=== PATIENT | male | born 2000 | race Caucasian/White ===

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

== ENCOUNTER 2018-02-09 14:35 | Emergency (ER) | payer BC, OTHER, SELFPAY ==
[2018-02-09] MEDS ORDERED: Acetaminophen 500 MG TAB ONE (14:46)
[2018-02-09] MEDS ORDERED: Ibuprofen 200 MG TAB ONE (14:51)
[2018-02-09 16:26] LABS: #Eosinphils 0.3 thou/uL (0.0-0.7); #Lymphocytes 1.8 thou/uL (1.20-3.40); #Monocytes 0.8 thou/uL (0.11-0.59); #Neutrophils 5.6 thou/uL (1.40-6.50); %Basophils 0.6 % (0.0-1.0); %Eosinophils 3.6 % (0.0-10.0); %Monocytes 8.8 % (0.0-4.0); %Neutrophils 66.1 % (31.0-61.0); Hemoglobin 15.4 g/dL (14.0-18.0); Mean Corpuscular HGB CONC 34.7 g/dL (32.0-36.0); Mean Corpuscular Volume 86.5 fL (78.0-98.0); Mean Platelet Volume 8.7 fL (7.4-10.4); Platelet Count 258 thou/uL (130-400); RBC Distribution Width 11.1 % (11.5-14.5); Red Blood Cell (RBC) Count 5.13 mill/uL (4.00-5.20); White Blood Cell (WBC) Count 8.5 thou/uL (4.8-10.8)
[2018-02-09] MEDS ORDERED: Hydrocortisone 10 mg Tablet PO SCH (16:30)
[2018-02-09 16:45] LABS: ALT (SGPT) 51 U/L (8-55); AST (SGOT) 41 U/L (10-45); Albumin 4.2 g/dL (3.5-5.0); Alkaline Phosphatase 61 U/L (Less than 750); Anion Gap 13 mmol/L (10-20); BUN (Urea Nitrogen) 14 mg/dL (8.4-21.0); Bilirubin, Total 0.8 mg/dL (0.2-1.2); Calc. Creatinine Clearance 0 mL/min (70-130); Calcium 9.7 mg/dL (7.8-10.44); Carbon Dioxide 20 mmol/L (22-29); Chloride 103 mmol/L (98-107); Estimated GFR-MDRD 88; Globulin 3.2 g/dL (2.4-3.5); Glucose 84 mg/dL (70-105); Potassium 3.6 mmol/L (3.5-5.1); Protein, Total 7.4 g/dL (6.0-8.3); Sodium 132 mmol/L (136-145)
--- NOTE | 2018-02-09 16:52 | RAD ---
CHEST TWO VIEWS: HISTORY: Bodyaches. Chills. Nausea. Fever. COMPARISON: 06/01/2017 FINDINGS: Normal cardiac silhouette. The pulmonary vessels and hilum are normal. The costophrenic angles are clear. No mass. No consolidation. No pneumothorax or osseous abnormalities. IMPRESSION: No acute cardiopulmonary process. POS: [facility]
== END 2018-02-09 17:32 | disposition home or self-care (01) ==
LOC: ERS 14:35
DX: J06.9 Acute upper respiratory infection, unspecified (principal); F17.290 Nicotine dependence, other tobacco product, uncomplicated; Z79.899 Other long term (current) drug therapy
CPT/HCPCS: 36415; 71046; 80053; 85025; 87804; 96360; 96361

== ENCOUNTER 2018-03-05 13:19 | Emergency (ER) | payer SELFPAY ==
[2018-03-05 13:43] LABS: #Eosinphils 0.5 thou/uL (0.0-0.7); #Lymphocytes 3.4 thou/uL (1.20-3.40); #Monocytes 0.7 thou/uL (0.11-0.59); #Neutrophils 3.9 thou/uL (1.40-6.50); %Basophils 0.4 % (0.0-1.0); %Eosinophils 6.2 % (0.0-10.0); %Lymphocytes 39.4 % (28.0-48.0); %Monocytes 8.2 % (0.0-4.0); %Neutrophils 45.8 % (31.0-61.0); Hemoglobin 14.7 g/dL (14.0-18.0); Mean Corpuscular HGB CONC 33.4 g/dL (32.0-36.0); Mean Corpuscular Hemoglobin 28.6 pg (25.0-35.0); Mean Corpuscular Volume 85.6 fL (78.0-98.0); Mean Platelet Volume 8.5 fL (7.4-10.4); Platelet Count 312 thou/uL (130-400); RBC Distribution Width 11.5 % (11.5-14.5); Red Blood Cell (RBC) Count 5.13 mill/uL (4.00-5.20); White Blood Cell (WBC) Count 8.6 thou/uL (4.8-10.8)
[2018-03-05 13:47] LABS: Bilirubin Negative (Negative); Blood, Urine Negative (Negative); Clarity CLEAR (Clear); Glucose, Urine (Dipstick) Negative (Negative); Leukocyte Negative (Negative); Nitrite Negative (Negative); Protein, Urine (Dipstick) Negative (Neg-Trace); Specific Gravity, Urine 1.024 (1.002-1.036)
[2018-03-05 14:12] LABS: ALT (SGPT) 36 U/L (8-55); AST (SGOT) 31 U/L (10-45); Albumin 4.3 g/dL (3.5-5.0); Alkaline Phosphatase 76 U/L (Less than 750); Anion Gap 11 mmol/L (10-20); BUN (Urea Nitrogen) 14 mg/dL (8.4-21.0); Bilirubin, Total 0.8 mg/dL (0.2-1.2); Calc. Creatinine Clearance 0 mL/min (70-130); Calcium 9.8 mg/dL (7.8-10.44); Carbon Dioxide 22 mmol/L (22-29); Chloride 105 mmol/L (98-107); Estimated GFR-MDRD Greater than 90; Globulin 3.1 g/dL (2.4-3.5); Glucose 97 mg/dL (70-105); Lipase 24 U/L (8-78); Potassium 3.5 mmol/L (3.5-5.1); Protein, Total 7.4 g/dL (6.0-8.3); Sodium 134 mmol/L (136-145)
[2018-03-05] MEDS ORDERED: Ketorolac Tromethamine 30 MG/ML VIAL ONE (14:57)
--- NOTE | 2018-03-05 15:10 | RAD ---
ACUTE ABDOMINAL SERIES WITH UPRIGHT CHEST AND TWO VIEW ABDOMEN: Indication: Pain. FINDINGS: There is no evidence of consolidation, effusion, or discrete pneumothorax. No free air beneath the he midiaphragms. Bowel gas pattern is nonobstructed. Osseous structures are intact. IMPRESSION: No acute process. POS: [facility]
[2018-03-05] MEDS ORDERED: Dicyclomine 20 MG TAB ONE (15:41)
== END 2018-03-05 16:22 | disposition home or self-care (01) ==
LOC: ERS 13:19
DX: R10.9 Unspecified abdominal pain (principal); F17.290 Nicotine dependence, other tobacco product, uncomplicated
CPT/HCPCS: 36415; 74022; 80053; 81003; 83690; 85025; 96361; 96374; J1885

== ENCOUNTER 2018-03-11 12:52 | Observation (INO) | payer SELFPAY ==
[~2018-03-11 12:52] MED LIST: ISOVUE-370 76%-LOCM 1 ML ONE
[2018-03-11] MEDS ORDERED: Ondansetron PF 4 MG/2 ML Vial ONE ×2 (13:17→14:01)
[2018-03-11] MEDS ORDERED: Hydrocortisone Sod Succ/PF 100 mg/2 ml Vial ONE (13:26)
[2018-03-11 13:33] LABS: #Basophils 0.1 thou/uL (0.0-0.2); #Eosinphils 0.3 thou/uL (0.0-0.7); #Monocytes 1.2 thou/uL (0.11-0.59); #Neutrophils 8.6 thou/uL (1.40-6.50); %Basophils 0.6 % (0.0-1.0); %Eosinophils 2.4 % (0.0-10.0); %Lymphocytes 16.3 % (28.0-48.0); %Monocytes 9.5 % (0.0-4.0); %Neutrophils 71.2 % (31.0-61.0); Hemoglobin 14.1 g/dL (14.0-18.0); Mean Corpuscular HGB CONC 33.7 g/dL (32.0-36.0); Mean Corpuscular Hemoglobin 28.3 pg (25.0-35.0); Mean Corpuscular Volume 83.9 fL (78.0-98.0); Mean Platelet Volume 8.7 fL (7.4-10.4); Platelet Count 247 thou/uL (130-400); RBC Distribution Width 11.6 % (11.5-14.5); Red Blood Cell (RBC) Count 4.99 mill/uL (4.00-5.20); White Blood Cell (WBC) Count 12.1 thou/uL (4.8-10.8)
--- NOTE | 2018-03-11 13:52 | RAD ---
PORTABLE CHEST ONE VIEW: Date: 03-11-18 Time: 12:40 p.m. History: Headache, nausea, body aches. FINDINGS: Comparison is made with exam of 02-19-18. The heart size is normal. The lungs are well expanded without focal areas of consolidation, pneumotho races or pleural effusions. IMPRESSION: No radiographic evidence of acute cardiopulmonary process. POS: [facility]
[2018-03-11 14:01] LABS: ALT (SGPT) 43 U/L (8-55); AST (SGOT) 30 U/L (10-45); Albumin 4.5 g/dL (3.5-5.0); Alkaline Phosphatase 72 U/L (Less than 750); Anion Gap 13 mmol/L (10-20); BUN (Urea Nitrogen) 16 mg/dL (8.4-21.0); Bilirubin, Total 0.7 mg/dL (0.2-1.2); Calc. Creatinine Clearance 0 mL/min (70-130); Calcium 9.8 mg/dL (7.8-10.44); Carbon Dioxide 21 mmol/L (22-29); Chloride 100 mmol/L (98-107); Estimated GFR-MDRD Greater than 90; Globulin 3.1 g/dL (2.4-3.5); Glucose 88 mg/dL (70-105); Potassium 3.3 mmol/L (3.5-5.1); Protein, Total 7.6 g/dL (6.0-8.3); Sodium 131 mmol/L (136-145)
[2018-03-11] MEDS ORDERED: Acetaminophen 500 MG TAB ONE (14:01)
[2018-03-11 14:38] LABS: Bilirubin Small (Negative); Blood, Urine Negative (Negative); Clarity CLEAR (Clear); Glucose, Urine (Dipstick) Negative (Negative); Leukocyte Negative (Negative); Nitrite Negative (Negative); Protein, Urine (Dipstick) Trace mg/dL (Neg-Trace); pH, Urine 6.5 (5.0-9.0)
[2018-03-11 14:39] LABS: Specific Gravity, Urine 1.043 (1.002-1.036)
--- NOTE | 2018-03-11 14:51 | CT ---
CT ABDOMEN AND PELVIS WITH IV CONTRAST: HISTORY: Fever, nausea, vomiting, abdominal pain. FINDINGS: Comparison is made with the exam of 07/04/2007. The lung bases are clear. The liver, pancreas, and adrenal glands are normal. The spleen measures 1 4 cm in length. No calcified gallstones are noted. No free air, free fluid, or retroperitoneal lymp hadenopathy is seen. Enlarged lymph nodes in the ileocecal chain are again seen and essentially jenny lar to 2008. There are small low-density lesions in the kidneys consistent with likely small cysts. Mild hydronephrosis in the left kidney is noted again, similar to the previous study of 2007. No ab normally loculated fluid collections are seen in the ad or pelvis to suggest abscess formation. No a cute osseous abnormalities are seen. The patient is post appendectomy. IMPRESSION: 1. Mild splenomegaly. 2. Stable mild left hydronephrosis. 3. Probable tiny adrenal cysts. 4. Stable mesenteric/ileocecal lymphadenopathy. POS: [facility]
[2018-03-11] MEDS ORDERED: Piperacillin/Tazobactam 4.5 GM VIAL ONE (16:51)
[2018-03-11 17:10] LABS: Amphetamine Not Detected (NotDetected); Barbiturates Screen Not Detected (NotDetected); Benzodiazepine Screen Not Detected (NotDetected); Cocaine Metabolite Screen Not Detected (NotDetected); Medtox Control Line Valid? VALID (VALID); Medtox Reader # READER 1; Methadone Not Detected (NotDetected); Methamphetamine Not Detected (NotDetected); Opiate Screen Not Detected (NotDetected); Oxycodone Screen Not Detected (NotDetected); Phencyclidine (PCP) Not Detected (NotDetected); THC/Cannabinoid Screen Not Detected (NotDetected); Tricyclic Screen Not Detected (NotDetected)
[2018-03-11] MEDS ORDERED: Senokot S 8.6-50 MG TAB PO PRN (18:53)
[2018-03-11] MEDS ORDERED: Guaifenesin DM 100-10/5 ML UDCUP PO PRN (18:53)
[2018-03-11] MEDS ORDERED: Promethazine HCl 25 MG/ML VIAL IM/IV PRN (18:56)
[2018-03-11 19:13] VITALS: BMI 25.3
[2018-03-11] MEDS ORDERED: Ondansetron ODT 4 MG TAB SL PRN (20:00)
[2018-03-11] MEDS ORDERED: Ondansetron PF 4 MG/2 ML Vial IVP PRN (20:00)
[2018-03-11] MEDS: Ondansetron PF 4 MG/2 ML Vial IVP PRN (20:37)
[2018-03-11] MEDS: Acetaminophen 325 MG TAB PO PRN (20:40)
[2018-03-11] MEDS: Famotidine/PF 20 mg/2ml Vial SLOW IVP SCH (20:43)
[2018-03-11] MEDS: Hydrocortisone Sod Succ/PF 100 mg/2 ml Vial IVP SCH (20:47)
[2018-03-11] MEDS: Sodium Chloride 0.9% 1,000 ML IV SCH (22:14)
[2018-03-11] MEDS ORDERED: traMADol HCl 50 MG TAB PO SCH (23:00)
--- NOTE | 2018-03-11 23:22 | HP ---
REASON FOR ADMISSION: Intractable nausea, vomiting. History of congenital adrenal hyperplasia to rule out sepsis. HISTORY OF PRESENT ILLNESS: The patient gives history of having severe nausea and vomiting. He has not been able to keep anything down from the last night. He states he vomited nearly 30 times and most of it was just retching. He has body aches all over and had a fever of 102 at home. Has a headache which is frontal. No cough or expectoration. No complaints of urinary urgency, frequency or burning urination. No complaints of diarrhea. No chest pain, no palpitation. The patient states he is compliant with his hydrocortisone medication. PAST MEDICAL AND SURGICAL HISTORY: History of congenital adrenal hyperplasia, ureteral surgery, appendectomy. CURRENT MEDICATIONS: Hydrocortisone 5 mg 3 times daily. ALLERGIES: No known drug allergies. PERSONAL HISTORY: Vapes E-cigarettes, does not abuse alcohol or drugs. 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 FAMILY HISTORY: Both parents are healthy as far as he knows. CODE STATUS: FULL. Power of trade mark attorney is his parents. REVIEW OF SYSTEMS: The following complete review of systems was negative, unless otherwise mentioned in the HPI or below: Constitutional: Weight loss or gain, ability to conduct usual activities. Skin: Rash, itching. Eyes: Double vision, pain. ENT/Mouth: Nose bleeding, neck stiffness, pain, tenderness. Cardiovascular: Palpitations, dyspnea on exertion, orthopnea. Respiratory: Shortness of breath, wheezing, cough, hemoptysis, fever or night sweats. Gastrointestinal: Poor appetite, abdominal pain, heartburn, nausea, vomiting, constipation, or diarrhea. Genitourinary: Urgency, frequency, dysuria, nocturia. Musculoskeletal: Pain, swelling. Neurologic/Psychiatric: Anxiety, depression. Allergy/Immunologic: Skin rash, bleeding tendency. PHYSICAL EXAMINATION: GENERAL: The patient is a 17-year-old male who is currently not in any acute distress. VITAL SIGNS: Blood pressure 100/64, pulse 140 per minute, respiratory rate 18 per minute, temperature 99.8 degrees Fahrenheit, saturating 98% on room air. NECK: Supple, no elevated JVD. HEENT: Extraocular muscles intact. Pupils reacting to light. Oral cavity, mucous membranes are dry. No exudates or congestion. CARDIOVASCULAR: S1, S2 heard. Regular rhythm. RESPIRATORY: Air entry 2+ bilateral. No rales or rhonchi. ABDOMEN: Soft, bowel sounds heard. No tenderness, rigidity or guarding. EXTREMITIES: No peripheral edema or calf tenderness. VASCULAR SYSTEM: Peripheral pulses 1+ bilateral, no ischemic ulcerations or gangrene. CENTRAL NERVOUS SYSTEM: No gross focal motor deficits noted. The patient is alert, awake, oriented well. PSYCHIATRIC: The patient's mood is euthymic. No hallucinations or delusions. LABORATORY AND X-RAY FINDINGS: White count of 12, H&H 14 and 41, platelet count 247 with 71% neutrophils. Sodium 131, potassium 3.3, bicarbonate 21, BUN 16, creatinine 0.9. Serum glucose 88. Liver enzymes within normal limits. Albumin is 4.5. UA shows small bilirubin, otherwise is negative for any infection. Urine drug screen is negative. Influenza A and B antigens are negative. Chest x-ray done shows no acute cardiopulmonary abnormalities. CT of the abdomen and pelvis with IV contrast done showed mild splenomegaly, stable mild left hydronephrosis, probable tiny adrenal cyst, stable mesenteric/ ileocecal lymphadenopathy. This was compared to prior CAT scan done on 2007. CLINICAL IMPRESSION AND PLAN: The patient will be admitted to medical floor under observation for now. The patient has a history of congenital adrenal hyperplasia and will replace his steroids via IV for now. He will also be pancultured, blood, urine, and sputum if he can provide one. Empiric Levaquin for now. He has got moderate to severe dehydration and will be placed on normal saline at 100 mls per hour. We will also obtain a cortisol level stat. The patient will be on Pepcid 20 mg IV q.12 hourly, Zofran, Phenergan p.r.n. for nausea, vomiting. If patient's cultures were to become positive or patient shows specific signs of infection, he will be switched over to inpatient status. [facility]
[2018-03-12 03:41] LABS: #Lymphocytes 1.6 thou/uL (1.20-3.40); #Monocytes 0.6 thou/uL (0.11-0.59); #Neutrophils 4.4 thou/uL (1.40-6.50); %Basophils 0.6 % (0.0-1.0); %Eosinophils 0.4 % (0.0-10.0); %Lymphocytes 24.1 % (28.0-48.0); %Monocytes 9.2 % (0.0-4.0); %Neutrophils 65.6 % (31.0-61.0); Hemoglobin 12.3 g/dL (14.0-18.0); Mean Corpuscular HGB CONC 32.5 g/dL (32.0-36.0); Mean Corpuscular Hemoglobin 28.3 pg (25.0-35.0); Mean Corpuscular Volume 87.1 fL (78.0-98.0); Platelet Count 220 thou/uL (130-400); RBC Distribution Width 11.6 % (11.5-14.5); Red Blood Cell (RBC) Count 4.35 mill/uL (4.00-5.20); White Blood Cell (WBC) Count 6.8 thou/uL (4.8-10.8)
[2018-03-12] MEDS: Acetaminophen 325 MG TAB PO PRN ×2 (03:41→20:13)
[2018-03-12 04:01] LABS: ALT (SGPT) 38 U/L (8-55); AST (SGOT) 27 U/L (10-45); Albumin 3.7 g/dL (3.5-5.0); Alkaline Phosphatase 59 U/L (Less than 750); Anion Gap 15 mmol/L (10-20); BUN (Urea Nitrogen) 12 mg/dL (8.4-21.0); Bilirubin, Total 0.4 mg/dL (0.2-1.2); Calc. Creatinine Clearance 127 mL/min (70-130); Calcium 8.9 mg/dL (7.8-10.44); Carbon Dioxide 17 mmol/L (22-29); Chloride 106 mmol/L (98-107); Estimated GFR-MDRD Greater than 90; Globulin 2.7 g/dL (2.4-3.5); Glucose 101 mg/dL (70-105); Potassium 4.6 mmol/L (3.5-5.1); Protein, Total 6.4 g/dL (6.0-8.3); Sodium 133 mmol/L (136-145)
[2018-03-12] MEDS: Ondansetron PF 4 MG/2 ML Vial IVP PRN ×2 (04:55→13:27)
[2018-03-12] MEDS ORDERED: Fioricet 325/50/40 mg Tablet PO SCH (05:30)
[2018-03-12] MEDS: Hydrocortisone Sod Succ/PF 100 mg/2 ml Vial IVP SCH ×3 (05:56→21:42)
[2018-03-12] MEDS: Sodium Chloride 0.9% 1,000 ML IV SCH ×3 (08:24→18:48)
[2018-03-12] MEDS: Famotidine/PF 20 mg/2ml Vial SLOW IVP SCH ×2 (08:24→20:07)
[2018-03-12] MEDS: Enoxaparin Sodium 40 MG/0.4 ML SYRINGE SC SCH (08:24)
--- NOTE | 2018-03-12 13:45 | PDOC.PN ---
- Subjective Encounter Start Date: 03/12/18 Encounter Start Time: 09:00 Subjective: Follow up for OBS for N/V Examined patient, -: Drousy after phenergan and zofran, reports vomiting has slowed down -: Reports feeling "slightly better". Diffuse abdominal pain - Objective Resuscitation Status: Resuscitation Status FULL:Full Resuscitation Vital Signs & Weight: Vital Signs (12 hours) Temp Pulse Resp BP Pulse Ox 03/12/18 11:15 97.7 F 91 16 100/52 L 99 03/12/18 07:21 98 F 78 15 94/46 L 99 03/12/18 03:29 97.4 F L 90 17 100/56 L 96 Weight Weight 74.117 kg I&O: 03/11/18 03/12/18 03/13/18 06:59 06:59 06:59 Intake Total 1275 Output Total 1225 Balance 50 Result Diagrams: 03/12/18 03:24 03/12/18 03:24 Phys Exam - Physical Examination Constitutional: NAD HEENT: PERRLA, moist MMs Neck: no nodes, full ROM Respiratory: clear to auscultation bilateral Cardiovascular: RRR, no significant murmur Gastrointestinal: soft, positive bowel sounds diffuse tenderness to palpation Musculoskeletal: no edema, pulses present Neurological: non-focal, normal sensation, moves all 4 limbs Lymphatic: no nodes Psychiatric: normal affect, A&O x 3 Skin: cap refill <2 seconds Dx/Plan (1) Nausea & vomiting Code(s): R11.2 - NAUSEA WITH VOMITING, UNSPECIFIED Status: Acute Qualifiers: Vomiting Intractability: intractable (2) Adrenogenital disorder Code(s): E25.9 - ADRENOGENITAL DISORDER, UNSPECIFIED Status: Chronic (3) Dehydration Code(s): E86.0 - DEHYDRATION Status: Acute - Plan cont current plan of care, continue antibiotics, DVT proph w/lovenox -: Will continue fluids, anti-emetics, Levaquin -: preliminary blood cx are negative -: WBC improved today. -: Will monitor, repeat labs in am if still vomiting today * .
[2018-03-13] MEDS: Sodium Chloride 0.9% 1,000 ML IV SCH (04:31)
[2018-03-13] MEDS: Hydrocortisone Sod Succ/PF 100 mg/2 ml Vial IVP SCH (06:10)
[2018-03-13 07:43] VITALS: BP 98/51; TEMP 97.8
[2018-03-13 08:20] LABS: #Lymphocytes 1.5 thou/uL (1.20-3.40); #Monocytes 0.4 thou/uL (0.11-0.59); #Neutrophils 1.5 thou/uL (1.40-6.50); %Basophils 0.3 % (0.0-1.0); %Eosinophils 0.8 % (0.0-10.0); %Lymphocytes 42.7 % (28.0-48.0); %Monocytes 12.2 % (0.0-4.0); Hemoglobin 11.5 g/dL (14.0-18.0); Mean Corpuscular HGB CONC 32.5 g/dL (32.0-36.0); Mean Corpuscular Hemoglobin 28.4 pg (25.0-35.0); Mean Corpuscular Volume 87.5 fL (78.0-98.0); Mean Platelet Volume 8.8 fL (7.4-10.4); Platelet Count 217 thou/uL (130-400); RBC Distribution Width 11.7 % (11.5-14.5); Red Blood Cell (RBC) Count 4.06 mill/uL (4.00-5.20); White Blood Cell (WBC) Count 3.5 thou/uL (4.8-10.8)
[2018-03-13] MEDS: Enoxaparin Sodium 40 MG/0.4 ML SYRINGE SC SCH (08:22)
[2018-03-13] MEDS: Famotidine/PF 20 mg/2ml Vial SLOW IVP SCH (08:22)
[2018-03-13 08:42] LABS: ALT (SGPT) 32 U/L (8-55); AST (SGOT) 23 U/L (10-45); Albumin 3.4 g/dL (3.5-5.0); Alkaline Phosphatase 55 U/L (Less than 750); Anion Gap 10 mmol/L (10-20); BUN (Urea Nitrogen) 9 mg/dL (8.4-21.0); Bilirubin, Total 0.2 mg/dL (0.2-1.2); Calc. Creatinine Clearance 178 mL/min (70-130); Calcium 8.6 mg/dL (7.8-10.44); Carbon Dioxide 19 mmol/L (22-29); Chloride 114 mmol/L (98-107); Estimated GFR-MDRD Greater than 90; Globulin 2.5 g/dL (2.4-3.5); Glucose 99 mg/dL (70-105); Lipase 31 U/L (8-78); Potassium 3.6 mmol/L (3.5-5.1); Protein, Total 5.9 g/dL (6.0-8.3); Sodium 139 mmol/L (136-145)
--- NOTE | 2018-03-14 10:55 | DIS ---
DATE OF ADMISSION: 03/11/2018 DATE OF DISCHARGE: 03/13/2018 PRIMARY CARE PHYSICIAN: None. He does see Dr. Vasques, service agent at [facility]. CONSULTANTS: None. PROCEDURES: The patient had a CT of the abdomen and pelvis, which showed mild splenomegaly, stable left hydronephrosis, tiny adrenal cysts, stable mesenteric lymphadenopathy. Chest x-ray was also performed with no radiographic evidence of acute process. DISCHARGE DIAGNOSES: 1. Intractable nausea and vomiting, resolved. 2. Congenital adrenal hyperplasia. 3. Dehydration, resolved. HOSPITAL COURSE: Mr Mayes was admitted on 03/11/18 via the ED for intractable nausea/vomiting, epigastric pain, fever, chills and was febrile. Patient was started on Levaquin, IV steroids, fluids and anti-emetics. Patient began to feel better the night prior to discharge, was able to eat a regular breakfast prior to being discharged home. Leukocystosis resolved, renal function and dehydration status improved, vital signs were stable and patient was discharged home. REVIEW OF SYSTEMS: The patient was examined on day of discharge. The patient denied any abdominal pain. Denied any nausea or vomiting in the last 12 hours. Denied any diarrhea. All other systems were reviewed and are negative. PHYSICAL EXAMINATION: VITAL SIGNS: Temperature 97.8, pulse is 51, respirations are 16, pulse ox is 99 % on room air, blood pressure is 98/51. GENERAL: The patient is a 17-year-old male, who is in no acute distress. He is alert and oriented, conversive. States he feels much better. HEENT: Head is normocephalic, atraumatic. Extraocular muscles are intact. Pupils are equally round and reactive to light. ENT, mucous membranes are moist. NECK: Normal range of motion. Trachea is midline. No JVD. RESPIRATORY/CHEST: Breath sounds are clear. CARDIOVASCULAR: S1, S2. Normal heart sounds. ABDOMEN: Male, nontender on palpation. Bowel sounds are heard in all 4 quadrants. No peritoneal signs. BACK: Normal inspection, normal range of motion, no tenderness. EXTREMITIES: Strength is equal x4. Sensation to all four extremities. Pulses are equal bilaterally upper and lower. No pedal edema is noted. NEUROLOGIC: The patient is alert to person, place and time. Speech is normal. No focal motor or sensory deficits. SKIN: Warm, dry and normal in color. No rashes are seen. MEDICATIONS: Patient was restarted on his home medications and we added Levaquin 750mg po daily x3 days, and Zofran 4mg ODT q6h prn nausea. DISPOSITION: condition is stable. Patient will be discharged to home. REFERRAL: Patient has been instructed to establish care with a PCP and follow up within the next week. Follow up with Dr. Vasques within the next 2-3 weeks. DICTATION ENDED MTDD
--- NOTE | 2018-03-14 17:42 | DIS ---
DATE OF ADMISSION: 03/11/2018 DATE OF DISCHARGE: 03/13/2018. PRIMARY CARE PHYSICIAN: None. Does see Dr. Vasques at [facility]. CONSULTATIONS: None. PROCEDURES: 1. The patient did have a chest x-ray which showed no radiographic evidence of any acute pulmonary process. 2. The patient had an abdominal pelvis CT with impression, A. Mild splenomegalia. B. Stable mild left hydronephrosis. C. Probable tiny adrenal cysts. D. Stable mesenteric ileocecal lymphadenopathy. DISCHARGE DIAGNOSES: 1. Nausea and vomiting, resolved. 2. Congenital adrenal hyperplasia. 3. Dehydration, resolved. REVIEW OF SYSTEMS: The patient was examined on day of discharge and was feeling much better. Denied any epigastric abdominal pain, any nausea, vomiting in the last 12 hours. Denied any constipation or diarrhea. All other systems were reviewed and are negative. PHYSICAL EXAMINATION: VITAL SIGNS: Temperature 97.8, pulse 51, respirations 16, pulse ox is 99% on room air, blood pressure 98/51. GENERAL: The patient is alert and oriented x3, in no apparent distress, looks nontoxic. HEENT: Head is normocephalic, atraumatic. Eyes; pupils are round and equal, reactive to light. Extraocular muscles are intact. NECK: Normal range of motion. Trachea is midline. No JVD is noted. RESPIRATORY: Chest, no respiratory distress. Breath sounds are clear. No wheezing or rales. LUNGS: Clear to auscultation. CARDIOVASCULAR: S1, S2. No murmur auscultated. ABDOMEN: Soft, nontender. Bowel sounds are present. EXTREMITIES: Full strength and range of motion x4. Pulses are equal and bilateral. SKIN: Warm, dry, normal in color. DISCHARGE MEDICATIONS: The patient will be continued on Protonix 20 mg p.o. at bedtime, Florinef 0.1 mg p.o. q.a.m., hydrocortisone 5 mg p.o. t.i.d. Prescriptions added for this visit Levaquin 750 mg p.o. daily x3 and Zofran 4 mg p.o. q.6 hours as needed for nausea. ALLERGIES: No known drug allergies. HOSPITAL COURSE: The patient was admitted on 03/14/2018. He gave a history of severe nausea and vomiting and had been keep anything down for 24 hours prior to his ER visit. Reports that he had vomited nearly 30 times and most of it was dry heaving. He reports body aches all over and reports had 102 fever at home as he also complained of a frontal headache. No cough, runny nose and change in urination. Denied any diarrhea, denied any chest pain or shortness of breath. Stated that he was compliant with his hydrocortisone steroid medication. He was admitted to the observation unit. He was given fluids, Levaquin, Zofran, and Phenergan. Patient reported on day of discharge that he felt better, had eaten a full breakfast and was anxious to return home. Vital signs have remained stable. LABORATORY DATA: White blood cell count had gone from 12.1 on day of admission to 3.5 on day of discharge. Sodium 131 increased to 139, potassium 3.3 on day of admission, went to 3.6. Other labs were unremarkable. Patient was discharged home to finish Levaquin course and was given Zofran for any refractory nausea, vomiting. CONDITION AT DISCHARGE: Stable. DISCHARGE INSTRUCTIONS: Patient was discharged home. Patient instructed to establish with a PCP and see within the next week. Follow up with Dr. Vasques at [facility] as scheduled. [facility]
== END 2018-03-13 11:14 | disposition home or self-care (01) ==
LOC: ERS 12:52 → 2SW 17:21
PROVIDERS: ADMIT Internal Medicine; ATTEND Internal Medicine
DX: R11.2 Nausea with vomiting, unspecified (principal); E25.0 Congenital adrenogenital disorders associated with enzyme deficiency; F17.290 Nicotine dependence, other tobacco product, uncomplicated; N13.30 Unspecified hydronephrosis; Z79.52 Long term (current) use of systemic steroids; Z79.899 Other long term (current) drug therapy
CPT/HCPCS: 36415; 71045; 74177; 80053; 80306; 81003; 82533; 83605; 83690; 85025; 87040; 87086; 87804; 96361; 96365; 96366; 96367; 96372; 96375; 96376; G0378; J1650; J1720; J1956; J2405; J2543; J2550; S0028

== ENCOUNTER 2018-08-11 13:25 | Observation (INO) | payer SELFPAY ==
[2018-08-11 14:33] LABS: Bilirubin Negative (Negative); Blood, Urine Negative (Negative); Clarity CLEAR (Clear); Glucose, Urine (Dipstick) Negative (Negative); Leukocyte Negative (Negative); Nitrite Negative (Negative); Protein, Urine (Dipstick) Negative (Neg-Trace); Specific Gravity, Urine 1.027 (1.002-1.036); pH, Urine 6.5 (5.0-9.0)
[2018-08-11] MEDS ORDERED: Ondansetron PF 4 MG/2 ML Vial ONE ×3 (14:38→20:02)
--- NOTE | 2018-08-11 14:42 | RAD ---
CHEST 1 VIEW AND ABDOMEN 2 VIEWS: Date: 08/11/18 HISTORY: Vomiting and diarrhea. Unable to keep fluids down. FINDINGS/IMPRESSION: Comparison made with exam of 03/05/18. The heart size is normal. The lungs are clear. No free air or differential fluid levels are seen. The bowel gas pattern is unremarkable. No suspicious calcifications are identified. POS: [facility]
[2018-08-11 14:47] LABS: #Basophils 0.1 thou/uL (0.0-0.2); #Eosinphils 0.4 thou/uL (0.0-0.7); #Lymphocytes 1.9 thou/uL (1.20-3.40); #Monocytes 0.8 thou/uL (0.11-0.59); #Neutrophils 9.2 thou/uL (1.40-6.50); %Basophils 0.8 % (0.0-1.0); %Eosinophils 3.3 % (0.0-10.0); %Lymphocytes 15.1 % (28.0-48.0); %Monocytes 6.7 % (0.0-4.0); %Neutrophils 74.1 % (31.0-61.0); Hemoglobin 15.6 g/dL (14.0-18.0); Mean Corpuscular HGB CONC 33.7 g/dL (32.0-36.0); Mean Corpuscular Hemoglobin 29.7 pg (25.0-35.0); Mean Corpuscular Volume 88.2 fL (78.0-98.0); Mean Platelet Volume 8.7 fL (7.4-10.4); Platelet Count 272 thou/uL (130-400); RBC Distribution Width 11.2 % (11.5-14.5); Red Blood Cell (RBC) Count 5.26 mill/uL (4.00-5.20); White Blood Cell (WBC) Count 12.5 thou/uL (4.8-10.8)
[2018-08-11 15:03] LABS: ALT (SGPT) 28 U/L (8-55); AST (SGOT) 25 U/L (5-34); Albumin 4.8 g/dL (3.5-5.0); Alkaline Phosphatase 90 U/L (Less than 750); Anion Gap 17 mmol/L (10-20); BUN (Urea Nitrogen) 14 mg/dL (8.9-20.6); Bilirubin, Total 0.9 mg/dL (0.2-1.2); CK (CPK) 129 U/L (30-200); Calc. Creatinine Clearance 0 mL/min (70-130); Calcium 10.2 mg/dL (7.8-10.44); Carbon Dioxide 19 mmol/L (22-29); Chloride 104 mmol/L (98-107); Estimated GFR-MDRD 82; Globulin 2.8 g/dL (2.4-3.5); Glucose 87 mg/dL (70-105); Lipase 14 U/L (8-78); Potassium 3.5 mmol/L (3.5-5.1); Protein, Total 7.6 g/dL (6.0-8.3); Sodium 136 mmol/L (136-145)
[2018-08-11] MEDS ORDERED: Promethazine HCl 25 MG/ML VIAL ONE (18:10)
[2018-08-11] MEDS ORDERED: Acetaminophen 500 MG TAB ONE (20:09)
[2018-08-11] MEDS ORDERED: Ondansetron ODT 4 MG TAB SL PRN (21:08)
[2018-08-11] MEDS ORDERED: Ondansetron PF 4 MG/2 ML Vial IVP PRN (21:08)
[2018-08-11 21:13] VITALS: BMI 31.0
[2018-08-11] MEDS: Sodium Chloride 0.9% 1,000 ML IV SCH (21:31)
[2018-08-11 21:58] LABS: Lactic Acid 0.8 mmol/L (0.5-2.2)
[2018-08-11] MEDS ORDERED: Hydrocortisone 10 mg Tablet PO SCH (22:45)
[2018-08-11] MEDS ORDERED: Fludrocortisone Acetate 0.1 MG TAB PO SCH (22:45)
[2018-08-12] MEDS: Acetaminophen 325 MG TAB PO PRN ×2 (03:28→22:27)
[2018-08-12] MEDS: Sodium Chloride 0.9% 1,000 ML IV SCH (03:53)
[2018-08-12] MEDS ORDERED: Ondansetron ODT 4 MG TAB PO PRN (06:52)
[2018-08-12] MEDS ORDERED: Ondansetron PF 4 MG/2 ML Vial IVP PRN (06:52)
[2018-08-12] MEDS ORDERED: Sodium Chloride 0.9% 1,000 ML IV SCH (07:00)
[2018-08-12] MEDS: Hydrocortisone 10 mg Tablet PO SCH ×3 (08:40→19:34)
[2018-08-12] MEDS ORDERED: Hydrocortisone Sod Succ/PF 100 mg/2 ml Vial IVP SCH (08:45)
[2018-08-12 09:09] LABS: Hemoglobin 13.5 g/dL (14.0-18.0); Mean Corpuscular HGB CONC 33.6 g/dL (32.0-36.0); Mean Corpuscular Hemoglobin 29.7 pg (25.0-35.0); Mean Corpuscular Volume 88.3 fL (78.0-98.0); Mean Platelet Volume 8.6 fL (7.4-10.4); Platelet Count 236 thou/uL (130-400); RBC Distribution Width 11.2 % (11.5-14.5); Red Blood Cell (RBC) Count 4.54 mill/uL (4.00-5.20); White Blood Cell (WBC) Count 5.3 thou/uL (4.8-10.8)
[2018-08-12 09:29] LABS: Lactic Acid 0.7 mmol/L (0.5-2.2)
[2018-08-12 09:31] LABS: Band 1 % (5-11); Eosinophils 10 % (0-10); Lymphocytes 47 % (28-48); MDiff Complete? YES; Monocytes 7 % (0-4); Neutrophil 36 % (31-61); RBC Morphology Normal
[2018-08-12 09:35] LABS: Anion Gap 12 mmol/L (10-20); BUN (Urea Nitrogen) 11 mg/dL (8.9-20.6); Calc. Creatinine Clearance 162 mL/min (70-130); Calcium 8.8 mg/dL (7.8-10.44); Carbon Dioxide 20 mmol/L (22-29); Chloride 108 mmol/L (98-107); Estimated GFR-MDRD Greater than 90; Glucose 78 mg/dL (70-105); Magnesium 1.8 mg/dL (1.7-2.2); Potassium 3.7 mmol/L (3.5-5.1); Sodium 136 mmol/L (136-145)
--- NOTE | 2018-08-12 12:07 | ULT ---
Gallbladder ultrasound: Multiple grayscale images of right upper quadrant obtained according to protocol. INDICATION: Pain, nausea, vomiting FINDINGS: Liver: Normal Gallbladder: Normal Gallbladder wall: Normal. Glover's Sign: Negative Common bile duct is normal. Ascites: None IMPRESSION: Normal gallbladder.
[2018-08-12] MEDS: Lactated Ringer's 1,000 ML IV SCH ×3 (12:32→19:36)
--- NOTE | 2018-08-12 14:22 | HP ---
PRIMARY CARE PHYSICIAN: Extract Operator, Forest Vasques MD, [facility]. CHIEF COMPLAINT/REASON FOR ADMISSION: "I'm vomiting and have diarrhea." HISTORY OF PRESENT ILLNESS: Mr. Mayes is a 18-year-old gentleman, with a medical history of congenital adrenal hyperplasia, on chronic hydrocortisone replacement 5 mg p.o. three times daily, as well as Florinef 0.1 mg p.o. q.p.m. He presents on this occasion with medical illness, primarily manifesting as nausea/vomiting/diarrhea/right upper quadrant discomfort. He reports on , which is 08/10/2018, he felt okay, went to bed in the evening, awoke from sleep with nausea and vomiting. He had two episodes of loose/watery/nonbloody stools at home. He felt dizzy and achy. He proceeded to the emergency department, ER triage on 08/11/2018 at 13:52 p.m. He was noted to have elevated lactic acid level of 2.9 in the emergency department at that time, as well as labs suggestive of intravascular volume depletion. Additionally, mild metabolic acidosis with a bicarbonate of 19. He was subsequently placed in the hospital for additional evaluation and care, presently on observational status. The patient tells me this morning that he has felt achy all over. He endorses right-sided rib/upper abdominal discomfort, which is intermittent in nature, sharp and shooting when it occurs. This has happened on a few occasions at home too and has been self-limited. He endorses mild nausea this morning. Trial of Gatorade last night unsuccessful. Denies any fever at home, does endorse some mild temperature elevation in the emergency department. Review of emergency department records indicates a T-max of 99.2 orally at the time of triage. He has had some congestion, no severe cough/productive sputum. No sick contacts. He endorses compliance with his hydrocortisone and Florinef. No urinary urgency/frequency/dysuria. No further diarrhea since hospital stay. PAST MEDICAL HISTORY: 1. Congenital adrenal hyperplasia, on chronic hydrocortisone 5 mg p.o. three times daily and Florinef 0.1 mg p.o. at bedtime. 2. Ureteral surgery. 3. Hospitalization in February 2018 with intractable nausea/vomiting, ultimately discharged after aggressive hydration and lack of evidence of underlying infection. PAST SURGICAL HISTORY: Appendectomy. CURRENT MEDICATIONS: 1. Hydrocortisone 5 mg p.o. t.i.d. 2. Florinef 0.1 mg p.o. at bedtime. 3. Pantoprazole 40 mg p.o. at bedtime. ALLERGIES: NONE. 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 He uses electronic cigarettes. No alcohol use, no illicit drug use. No children, he is single. He drinks perhaps once per month, did not use alcohol preceding the events of the last 72 hours. FAMILY HISTORY: Both parents are living, healthy. REVIEW OF SYSTEMS: Full review of systems reviewed, addressed, negative except otherwise as mentioned above. Notably, weight has been stable, no skin rash/ skin change, endorses current appetite is poor. PHYSICAL EXAMINATION: ER TRIAGE VITAL SIGNS: Blood pressure 122/57, heart rate 117, respiratory rate 18, temperature 99.2. Current vital signs; temperature 98.1, pulse 81, respiratory rate 16, saturating 98% on room air, blood pressure 94/63. GENERAL: This is a pleasant young man, resting in bed. Able to provide a fair history. HEENT: Eyes; conjunctival injection is present. No scleral icterus. Pupils are reactive bilaterally. Oropharynx, mucous membranes are dry. NECK: Supple. Full range of motion. HEART: Regular rate, rhythm without distinct murmurs/rubs/gallops. LUNGS: Clear to auscultation bilaterally. ABDOMEN: Soft/nontender/nondistended. Some reproducible point tenderness, right upper quadrant/just under the right rib. EXTREMITIES: No clubbing/cyanosis/edema. SKIN: No skin rash or skin changes. NEUROLOGIC: He is able to move all extremities bilaterally to command, no focal deficits. LABORATORY/DATA REVIEW: White blood cell count 12.5, hemoglobin 15.6, hematocrit 46.4, platelet count of 272. Chemistry panel; serum glucose 136, potassium 3.5, chloride 104, bicarb 19, BUN 14, creatinine 1.14. Lactic acid 2.9 with a repeat at 9:35 p.m. of 0.8. Liver function tests reviewed and are negative. Lipase is negative. On his previous hospital stay, he did undergo a CT scan of the abdomen and pelvis. This was performed in February 2018, showing mild splenomegaly, stable mild left hydronephrosis, probable tiny adrenal cyst, stable mesenteric ileocecal lymphadenopathy, not felt to be clinically relevant. IMPRESSION: 1. Nausea/vomiting/diarrhea in the context of underlying adrenal insufficiency, with resultant intravascular volume depletion. 2. Right upper quadrant/right-sided chest/rib discomfort, evaluate for underlying gallbladder disease. 3. Intravascular volume depletion. 4. History of congenital adrenal hyperplasia. PLAN/RECOMMENDATIONS: 1. Right upper quadrant ultrasound, rule out gallbladder etiology precipitating symptoms above. 2. GI-two episodes of diarrhea at home, as well as nausea, vomiting, consideration for gastroenteritis. 3. Endocrine-hydrocortisone 100 mg IV x1. It appears that his evening oral dose did not get administered. This may have been due to vomiting. Will give IV at this time. Continue home Florinef 0.1 mg p.o. q.p.m. 4. Recheck labs, including lactic acid level. 5. Pending labs/clinical course, a trial of clear liquids/advance as tolerated. 6. Fluids, electrolytes, nutrition. Continue IV fluids, increase rate to 150 mL /h for the next 1 L. 7. Monitor for evidence of temperature elevation. At this time, remains on observational status. Job ID: [id number] [facility] [place] [facility]
[2018-08-12] MEDS ORDERED: Fludrocortisone Acetate 0.1 MG TAB PO SCH (21:00)
[2018-08-12] MEDS ORDERED: Non-Formulary Item 1 EACH (Esomeprazole Magnesium [Nexium] 20 MG) PO SCH (21:00)
[2018-08-13] MEDS: Lactated Ringer's 1,000 ML IV SCH ×2 (05:01→12:59)
[2018-08-13] MEDS: Hydrocortisone 10 mg Tablet PO SCH ×2 (08:55→14:26)
[2018-08-13 11:32] VITALS: BP 92/60; TEMP 97.8
--- NOTE | 2018-08-14 05:35 | DIS ---
DATE OF ADMISSION: 08/11/2018 DATE OF DISCHARGE: 08/13/2018 PRIMARY CARE PHYSICIAN: Water Engineer, Forest Vasques MD, [facility]. CHIEF COMPLAINT/REASON FOR ADMISSION: "I'm vomiting and have diarrhea." PRINCIPAL DIAGNOSES ON ADMISSION: Nausea/vomiting/diarrhea, in the context of underlying adrenal insufficiency, with intravascular volume depletion. DISCHARGE DIAGNOSES: 1. Nausea/vomiting/diarrhea, presumably gastroenteritis, in the context of underlying adrenal insufficiency/congenital adrenal hyperplasia, with resultant intravascular volume depletion. 2. Intravascular volume depletion. 3. History of congenital adrenal hyperplasia. HOSPITAL COURSE: Mr. Mayes is a 18-year-old gentleman, with a history of congenital adrenal hyperplasia, on chronic hydrocortisone replacement 5 mg p.o. three times daily, as well as Florinef 0.1 mg p.o. q.p.m. He presents on this occasion with medical illness, primarily manifesting as nausea, vomiting, and diarrhea. He endorsed right upper quadrant discomfort. Subsequent right upper quadrant ultrasound was unremarkable. Mild temperature elevation noted at the time of ER triage, 99.2. He has had no further temperature elevations throughout his hospital stay. White blood cell count on admission 12.5, hemoglobin 15.6, and hematocrit 46%. BUN was 14 and creatinine 1.14. Lactic acid also elevated on admission at 2.9. On the following day, with supportive care, IV fluids, one dose of hydrocortisone 100 mg IV, interval improvement in labs noted, with lactic acid 0.7, creatinine 0.87, white blood cell count 5.3, hemoglobin 13.5, and hematocrit 40.1. Clinically, he is also much improved, no evidence of fever, blood pressure is at his baseline, which runs typically 90s systolic. Tolerating a diet, no abdominal discomfort or pain, stable for transition to home. PHYSICAL EXAMINATION: On the day of discharge, LUNGS: Clear to auscultation bilaterally. HEART: Regular rate and rhythm. ABDOMEN: Soft, nontender, nondistended. EXTREMITIES: No clubbing/cyanosis/edema. MEDICATIONS/DISCHARGE INSTRUCTIONS: He will follow up with Dr. Forest Vasques, Endocrinology at [facility] per his usual schedule, he sees Dr. Vasques every 4 to 6 months. He needs a refill for his Florinef, this has been provided for him. Remainder of medication list; 1. Nexium 20 mg p.o. at bedtime. 2. Hydrocortisone 5 mg p.o. three times daily. 3. Florinef 0.1 mg p.o. q.p.m., prescription provided. DIET: Regular. ACTIVITY: As tolerated. TIME SPENT: Time spent on discharge, 35 minutes. Job ID: [id number]
== END 2018-08-13 14:32 | disposition home or self-care (01) ==
LOC: ERS 13:25 → T4-B 21:08
PROVIDERS: ADMIT Internal Medicine; ATTEND Internal Medicine
DX: R11.2 Nausea with vomiting, unspecified (principal); R19.7 Diarrhea, unspecified; R10.11 Right upper quadrant pain; E25.0 Congenital adrenogenital disorders associated with enzyme deficiency; F17.290 Nicotine dependence, other tobacco product, uncomplicated; Z79.52 Long term (current) use of systemic steroids; Z79.899 Other long term (current) drug therapy
CPT/HCPCS: 36415; 74022; 76705; 80048; 80053; 81003; 82550; 83605; 83690; 83735; 85025; 86850; 86900; 86901; 87804; 94760; 96361; 96365; 96375; 96376; G0378; J1720; J2405; J2550

== ENCOUNTER 2019-04-23 15:30 | Observation (INO) | payer BC, SELFPAY ==
[~2019-04-23 15:30] MED LIST changes: -ISOVUE-370 76%-LOCM 1 ML ONE; +Iopamidol-370 76% 500 ML 1 ML ONE
--- NOTE | 2019-04-23 15:55 | RAD ---
CHEST 1 VIEW: History Syncope. COMPARISON: 08/11/2018. FINDINGS: Heart size is normal. The lungs are clear. IMPRESSION: No significant acute intrathoracic disease. Stable from prior study. POS: OFF
[2019-04-23 16:20] LABS: #Basophils 0.1 thou/uL (0.0-0.2); #Eosinphils 0.7 thou/uL (0.0-0.7); #Lymphocytes 1.8 thou/uL (1.20-3.40); #Monocytes 1.1 thou/uL (0.11-0.59); #Neutrophils 6.9 thou/uL (1.40-6.50); %Basophils 0.6 % (0.0-1.0); %Eosinophils 6.4 % (0.0-10.0); %Lymphocytes 17.1 % (28.0-48.0); %Monocytes 10.1 % (0.0-4.0); %Neutrophils 65.9 % (31.0-61.0); Hemoglobin 16.6 g/dL (14.0-18.0); Mean Corpuscular HGB CONC 34.3 g/dL (32.0-36.0); Mean Corpuscular Hemoglobin 29.3 pg (25.0-35.0); Mean Corpuscular Volume 85.6 fL (78.0-98.0); Mean Platelet Volume 9.3 fL (7.4-10.4); Platelet Count 250 thou/uL (130-400); RBC Distribution Width 11.5 % (11.5-14.5); Red Blood Cell (RBC) Count 5.66 mill/uL (4.00-5.20); White Blood Cell (WBC) Count 10.5 thou/uL (4.8-10.8)
[2019-04-23 16:38] LABS: ALT (SGPT) 23 U/L (8-55); AST (SGOT) 19 U/L (5-34); Albumin 4.5 g/dL (3.5-5.0); Alkaline Phosphatase 95 U/L (50-130); Anion Gap 15 mmol/L (10-20); BUN (Urea Nitrogen) 13 mg/dL (8.9-20.6); Calc. Creatinine Clearance 0 mL/min (70-130); Calcium 9.2 mg/dL (7.8-10.44); Carbon Dioxide 23 mmol/L (22-29); Chloride 100 mmol/L (98-107); Estimated GFR-MDRD 87; Globulin 2.9 g/dL (2.4-3.5); Glucose 82 mg/dL (70-105); Lipase 16 U/L (8-78); Potassium 3.5 mmol/L (3.5-5.1); Protein, Total 7.4 g/dL (6.0-8.3); Sodium 134 mmol/L (136-145)
[2019-04-23 16:39] LABS: Acetaminophen Less than 6.0 mcg/mL (10.0-30.0); Alcohol Less than 10 mg/dL (Less than 10); CK (CPK) 155 U/L (30-200); Magnesium 1.7 mg/dL (1.7-2.2); Salicylate Less than 8.0 mg/dL (15.0-30.0)
[2019-04-23] MEDS ORDERED: Hydrocortisone Sod Succ/PF 100 mg/2 ml Vial ONE (16:48)
[2019-04-23] MEDS ORDERED: Ondansetron PF 4 MG/2 ML Vial ONE ×2 (16:48→17:40)
--- NOTE | 2019-04-23 17:20 | CT ---
Exam: CT brain PROVIDED CLINICAL HISTORY: Syncope COMPARISON: None FINDINGS: The ventricular system is normal in size and morphology. No evidence for intracranial hemorrhage or mass effect. The extracranial soft tissues and osseous structures demonstrate no evidence for an acute abnormality. IMPRESSION: No evidence for intracranial hemorrhage or mass effect.
[2019-04-23 17:24] LABS: Bacteria/HPF None Seen HPF (None Seen); Bilirubin Negative (Negative); Blood, Urine Negative (Negative); Clarity Clear (Clear); Glucose, Urine (Dipstick) Normal (Negative); Leukocyte Negative Leu/uL (Negative); Nitrite Negative (Negative); Protein, Urine (Dipstick) 50 mg/dL (Neg-Trace); RBC/HPF 0-3 HPF (0-3); Squamous Epithelial 0-3 HPF (0-3); Urobilinogen 3 mg/dL (Less than 2); WBC/HPF 0-3 HPF (0-3)
--- NOTE | 2019-04-23 17:27 | CT ---
EXAM: CT Abdomen Pelvis W Con PROVIDED CLINICAL HISTORY: Abdominal pain and diarrhea COMPARISON: 03/11/2018 FINDINGS: The visualized lung bases are free of significant opacity. The liver, spleen, pancreas, kidneys and adrenal glands demonstrate no significant abnormality. There is fluid density throughout much of the colon suggesting a diarrheal illness. There is no evide nce for bowel obstruction. No free fluid, inflammatory fat stranding or free air apparent. Stable prominent by number and borderline enlarged right lower quadrant mesenteric lymph nodes are seen. The regional major vascular structures appear unremarkable. The osseous structures demonstrate no concerning lytic or blastic lesions. IMPRESSION: Fluid density throughout the colon, suggesting a diarrheal illness. Prominent by number and order one enlarged right lower quadrant mesenteric lymph nodes, nonspecific. This could reflect mesenteric adenitis.
[2019-04-23 17:34] LABS: Amphetamine Not Detected (NotDetected); Barbiturates Screen Not Detected (NotDetected); Benzodiazepine Screen Not Detected (NotDetected); Cocaine Metabolite Screen Not Detected (NotDetected); Medtox Control Line Valid? VALID (VALID); Medtox Reader # READER 1; Methadone Not Detected (NotDetected); Methamphetamine Detected (NotDetected); Opiate Screen Not Detected (NotDetected); Oxycodone Screen Not Detected (NotDetected); Phencyclidine (PCP) Not Detected (NotDetected); THC/Cannabinoid Screen Not Detected (NotDetected); Tricyclic Screen Not Detected (NotDetected)
--- NOTE | 2019-04-23 18:02 | PDOC.FPRHP ---
- History of Present Illness Chief Complaint: N/V, Syncope History of Present Illness: Pt is a 18 yo male with PMH significant for congenital adrenal hyperplasia who presents with an episode of syncope, N/V. Symptoms started this morning at 0300 while working. He became very lightheaded and nauseated. He drove home due to his condition. At home he had an episode of emesis and when standing he had a syncopal episode, hitting his head on the toilet. He did not have cuts. He then followed up with the emergency department. He states this is how he feels when has adrenal insufficiency. He takes his medications routinely. He attempted to stress dose but could not keep medication down with emesis. He did endorse and episode of diarrhea, but not other signs of an acute illness. He denied drug use. ED Course: In the ED he was found to have a cortisol level of 1.0. He was given solucortef 100 mg, 2 L fluids, zofran and toradol. - Allergies/Adverse Reactions Allergies Allergy/AdvReac Type Severity Reaction Status Date / Time No Known Drug Allergies Allergy Verified 03/11/18 21:23 - Home Medications Medication Instructions Recorded Confirmed Type Esomeprazole Magnesium [NexIUM] 20 mg PO HS 03/11/18 08/11/18 History Hydrocortisone 5 mg PO TID 03/11/18 08/11/18 History Fludrocortisone Acetate [Florinef] 0.1 mg PO BID 04/23/19 04/23/19 History - History PMHx: Congential Adrenal Hyperplasia PSHx: appendectomy, renal surg when he was 3 but unsure why FHx: brother: [facility] Social: vapes, denies alcohol/drugs; lives with fiance, works at [email or web address] - Review of Systems ROS unobtainable: due to endotracheal tube General: reports: weight/appetite/sleep changes. denies: fever/chills ENT: denies: nasal congestion, rhinorrhea Respiratory: denies: cough, congestion Cardiovascular: denies: chest pain, palpitation, edema Gastrointestinal: reports: nausea, vomiting, diarrhea. denies: constipation, GI bleeding Genitourinary: denies: incontinence, dysuria, polyuria Skin: denies: rashes Neurological: reports: syncope. denies: numbness - Vital signs BP: 114/85 HR: 117 RR: 24 Tmax: 99.7 Pox: 100% on RA Wt: 88.5 kg - Physical Exam Constitutional: NAD, awake, alert and oriented HEENT: PERRLA, EOMI Neck: FROM, trachea midline Heart: RRR, normal S1/S2, no edema Lungs: CTAB, no respiratory distress, no wheezing Abdomen: soft, non-tender, bowel sounds present Musculoskeletal: normal tone, ROM grossly normal Neurological: no focal deficit, CN II-XII intact Skin: no rash/lesions Heme/Lymphatic: no purpura, no petechia FMR H&P: Results - Labs Result Diagrams: 04/23/19 16:02 04/23/19 16:02 Lab results: WBC 10.5 thou/uL (4.8-10.8) 04/23/19 16:02 Hgb 16.6 g/dL (14.0-18.0) 04/23/19 16:02 Hct 48.5 % (42.0-52.0) 04/23/19 16:02 MCV 85.6 fL (78.0-98.0) 04/23/19 16:02 Plt Count 250 thou/uL (130-400) 04/23/19 16:02 Neutrophils % 65.9 % (31.0-61.0) H 04/23/19 16:02 Sodium 134 mmol/L (136-145) L 04/23/19 16:02 Potassium 3.5 mmol/L (3.5-5.1) 04/23/19 16:02 Chloride 100 mmol/L (98-107) 04/23/19 16:02 Carbon Dioxide 23 mmol/L (22-29) 04/23/19 16:02 BUN 13 mg/dL (8.9-20.6) 04/23/19 16:02 Creatinine 1.08 mg/dL (0.7-1.3) 04/23/19 16:02 Glucose 82 mg/dL (70-105) 04/23/19 16:02 Lactic Acid 1.3 mmol/L (0.5-2.2) 04/23/19 16:02 Calcium 9.2 mg/dL (7.8-10.44) 04/23/19 16:02 Total Bilirubin 1.0 mg/dL (0.2-1.2) 04/23/19 16:02 AST 19 U/L (5-34) 04/23/19 16:02 ALT 23 U/L (8-55) 04/23/19 16:02 Alkaline Phosphatase 95 U/L (50-130) 04/23/19 16:02 Creatine Kinase 155 U/L (30-200) 04/23/19 16:02 Serum Total Protein 7.4 g/dL (6.0-8.3) 04/23/19 16:02 Albumin 4.5 g/dL (3.5-5.0) 04/23/19 16:02 Lipase 16 U/L (8-78) 04/23/19 16:02 Urine Ketones Negative mg/dL (Negative) 04/23/19 17:11 Urine Blood Negative (Negative) 04/23/19 17:11 Urine Nitrite Negative (Negative) 04/23/19 17:11 Ur Leukocyte Esterase Negative Wade/uL (Negative) 04/23/19 17:11 Urine RBC 0-3 HPF (0-3) 04/23/19 17:11 Urine WBC 0-3 HPF (0-3) 04/23/19 17:11 Ur Squamous Epith Cells 0-3 HPF (0-3) 04/23/19 17:11 Urine Bacteria None Seen HPF (None Seen) 04/23/19 17:11 - Radiology Interpretation CT scan - abdomen Status: report reviewed by me (possible diarrhea noted) CT scan - head Status: report reviewed by me (no acute processes) Chest x-ray Status: report reviewed by me (no acute processes) FMR H&P: A/P - Problem List (1) Congenital adrenal hyperplasia Current Visit: Yes Status: Acute Code(s): E25.0 - CONGENITAL ADRENOGENITAL DISORDERS ASSOC W ENZYME DEFICIENCY (2) Gastroenteritis presumed infectious Current Visit: No Status: Acute Code(s): A09 - INFECTIOUS GASTROENTERITIS AND COLITIS, UNSPECIFIED (3) Adrenogenital disorder Current Visit: No Status: Chronic Code(s): E25.9 - ADRENOGENITAL DISORDER, UNSPECIFIED (4) Dehydration Current Visit: No Status: Resolved Code(s): E86.0 - DEHYDRATION (5) Nausea & vomiting Current Visit: No Status: Resolved Code(s): R11.2 - NAUSEA WITH VOMITING, UNSPECIFIED Qualifiers: Vomiting Intractability: intractable - Plan Pt is a 18 yo male with PMH significant for congenital adrenal hyperplasia who presents with symptoms characteristic of previous adrenal insufficiencies: # Congenital Adrenal Hyperplasia: # Adrenal Insufficiency vs Mild Adrenal Crisis Possibly exacerbated by GI upset, viral gastroenteritis causing diarrhea. In ED given zofran, solucortef 100 mg IV, Toradol, 2 L fluids - 3 x 3 dosing: increase home dose to 3 x amount for 3 days then resume normal dose; hydrocortisone 15 mg TID x 3 days - monitor blood pressures, resolution of N/V - continue fludrocort # Meth Positive UDS - pt states he does not use meth. He has been told his medications interact causing a false positive. Will contact lab to assess. # GERD - continue home meds Fluids: LR 125 mls/hr Diet: Reg VTE: Lovenox Code: Full Dispo: < 48 hrs FMR H&P: Upper Level - Plan Date/Time: 04/23/191801 IToni MD, have evaluated this patient and agree with findings/plan as outlined by consumer insights intern resident. Pertinent changes/additions are listed here. Vicente Mayes is a 18 year old M with a PMH of Congenital Adrenal Hyperplasia who presented to the ED with a 1 day history of acute onset of nausea, vomiting , diarrhea and abdominal pain. Symptoms started one day ago and have progressed to wear patient was not holding down much PO intake. Went to work today and was sent home due to illness. Has associated weakness, fatigue and dizziness. States that he went home, lives alone, and passed out and hit head on toilet. Not witnessed and he is unsure of how long or if he lost consciousness. Denies any headache, swelling, bleeding. On presentation to ED , BPs were in the 100s systolic, patient states that his BP is always that low. Lowest BP in ED was 95 systolic. He was tachycardic at 117, RR 24, 100% on RA, temp 99.7. Labs were: UDS positive for meth, CT abd showed mesenteric adenitis, CT brain neg, Cortisol 1.0, Trop 0.01, Lactic acid 1.3, Lipase 16. WBC 10.5. Na 134, K 3.5, bicarb 23, Cr 1.08. On exam, pt had diffuse abdominal ttp, no rigidity/guarding. Lungs CTAB, Heart RRR no murmurs. In the ED, he was given toradol, 1 L NS X2, solu-cortef 100 mg and zofran. Admitting patient for mild adrenal crisis vs likely viral gastroenteritis in setting of chronic adrenal insufficiency. Will increase patient's home dose of glucocorticoids by 3 times normal for 3 days. Will continue mIVFs and will monitor electrolytes. Anticipate hospital stay less than 48 hours. Please see consumer insights intern note above for full H&P, which I have reviewed and agree with.
[2019-04-23] MEDS ORDERED: Ketorolac Tromethamine 30 MG/ML VIAL ONE (18:06)
[2019-04-23 20:55] VITALS: BMI 32.4
[2019-04-23] MEDS: Lactated Ringer's 1,000 ML IV SCH (21:08)
[2019-04-23] MEDS: Ondansetron ODT 4 MG TAB PO PRN (23:18)
[2019-04-24] MEDS: Lactated Ringer's 1,000 ML IV SCH ×3 (05:06→21:15)
[2019-04-24] MEDS: Ondansetron ODT 4 MG TAB PO PRN ×2 (05:59→13:18)
[2019-04-24 06:04] LABS: #Eosinphils 0.4 thou/uL (0.0-0.7); #Lymphocytes 2.4 thou/uL (1.20-3.40); #Neutrophils 4.5 thou/uL (1.40-6.50); %Basophils 0.5 % (0.0-1.0); %Eosinophils 4.9 % (0.0-10.0); %Lymphocytes 29.4 % (28.0-48.0); %Monocytes 11.4 % (0.0-4.0); %Neutrophils 53.8 % (31.0-61.0); Hemoglobin 13.3 g/dL (14.0-18.0); Mean Corpuscular HGB CONC 35.1 g/dL (32.0-36.0); Mean Corpuscular Hemoglobin 30.5 pg (25.0-35.0); Mean Corpuscular Volume 87.1 fL (78.0-98.0); Mean Platelet Volume 9.4 fL (7.4-10.4); Platelet Count 211 thou/uL (130-400); RBC Distribution Width 11.4 % (11.5-14.5); Red Blood Cell (RBC) Count 4.36 mill/uL (4.00-5.20); White Blood Cell (WBC) Count 8.3 thou/uL (4.8-10.8)
[2019-04-24 06:09] LABS: Anion Gap 11 mmol/L (10-20); BUN (Urea Nitrogen) 14 mg/dL (8.9-20.6); Calc. Creatinine Clearance 162 mL/min (70-130); Calcium 8.4 mg/dL (7.8-10.44); Carbon Dioxide 22 mmol/L (22-29); Chloride 107 mmol/L (98-107); Estimated GFR-MDRD Greater than 90; Glucose 89 mg/dL (70-105); Potassium 3.9 mmol/L (3.5-5.1); Sodium 136 mmol/L (136-145)
[2019-04-24] MEDS ORDERED: Acetaminophen 500 MG TAB PO PRN (08:07)
[2019-04-24] MEDS: Fludrocortisone Acetate 0.1 MG TAB PO SCH ×2 (08:44→21:14)
[2019-04-24] MEDS: Hydrocortisone 10 mg Tablet PO SCH ×3 (08:44→21:12)
[2019-04-24] MEDS: Enoxaparin Sodium 40 MG/0.4 ML SYRINGE SC SCH (08:45)
--- NOTE | 2019-04-24 08:46 | PDOC.FM ---
- Subjective Subjective: pt resting comfortably in bed, reports nausea and vomiting - Objective Vital Signs & Weight: Vital Signs (12 hours) Temp Pulse Resp BP Pulse Ox 04/24/19 07:27 98.1 F 73 18 85/55 L 98 04/24/19 04:05 98.2 F 82 16 91/55 L 96 04/23/19 23:10 98.2 F 87 16 109/50 L 97 04/23/19 20:53 98.3 F 87 16 104/73 97 Weight Weight 88.507 kg Result Diagrams: 04/24/19 05:27 04/24/19 05:27 Phys Exam - Physical Examination Constitutional: NAD HEENT: moist MMs Neck: no JVD Gastrointestinal: soft, no distention Musculoskeletal: pulses present Neurological: moves all 4 limbs Psychiatric: normal affect Skin: no rash Dx/Plan (1) Congenital adrenal hyperplasia Code(s): E25.0 - CONGENITAL ADRENOGENITAL DISORDERS ASSOC W ENZYME DEFICIENCY Status: Acute (2) Gastroenteritis presumed infectious Code(s): A09 - INFECTIOUS GASTROENTERITIS AND COLITIS, UNSPECIFIED Status: Acute (3) Nausea & vomiting Code(s): R11.2 - NAUSEA WITH VOMITING, UNSPECIFIED Status: Resolved Qualifiers: Vomiting Intractability: intractable - Plan Plan: Congenital Adrenal Hyperplasia: Mild Adrenal Crisis - 3 x 3 dosing: increase home dose to 3 x amount for 3 days then resume normal dose; hydrocortisone 15 mg TID x 3 days - monitor blood pressures, resolution of N/V - continue fludrocort infectious gastroenteritis - most likely exacerbated above - fluids and zofran GERD - continue home meds Fluids: LR 125 mls/hr VTE: Lovenox Code: Full Dispo: continue supportive care, possible DC later today with improvement
[2019-04-24] MEDS ORDERED: Loperamide HCl 2 MG CAP PO PRN (09:19)
[2019-04-25] MEDS: Lactated Ringer's 1,000 ML IV SCH (04:40)
--- NOTE | 2019-04-25 07:00 | PDOC.FM ---
- Subjective Subjective: pt resting comfortably in bed, no vomiting or diarrhea overnight, tolerating PO well - Objective Vital Signs & Weight: Vital Signs (12 hours) Temp Pulse Resp BP Pulse Ox 04/25/19 05:40 98.0 F 73 16 105/68 97 04/25/19 04:00 98.1 F 81 16 89/55 L 96 04/25/19 00:00 98.5 F 88 16 102/64 100 04/24/19 20:00 98.3 F 73 16 97/63 99 Weight Weight 88.507 kg I&O: 04/23/19 04/24/19 04/25/19 06:59 06:59 06:59 Intake Total 5890 Output Total 500 Balance 5390 Result Diagrams: 04/25/19 06:57 04/25/19 06:57 Phys Exam - Physical Examination Constitutional: NAD HEENT: moist MMs Neck: supple Gastrointestinal: soft, no distention, positive bowel sounds Musculoskeletal: no edema Neurological: moves all 4 limbs Psychiatric: normal affect Skin: no rash Dx/Plan (1) Congenital adrenal hyperplasia Code(s): E25.0 - CONGENITAL ADRENOGENITAL DISORDERS ASSOC W ENZYME DEFICIENCY Status: Acute (2) Gastroenteritis presumed infectious Code(s): A09 - INFECTIOUS GASTROENTERITIS AND COLITIS, UNSPECIFIED Status: Acute (3) Nausea & vomiting Code(s): R11.2 - NAUSEA WITH VOMITING, UNSPECIFIED Status: Resolved Qualifiers: Vomiting Intractability: intractable - Plan Plan: Congenital Adrenal Hyperplasia: Mild Adrenal Crisis - 3 x 3 dosing: increase home dose to 3 x amount for 3 days then resume normal dose; hydrocortisone 15 mg TID x 3 days - monitor blood pressures, resolution of N/V - continue fludrocort infectious gastroenteritis - most likely exacerbated above - fluids and zofran GERD - continue home meds Fluids: LR 125 mls/hr VTE: Lovenox Code: Full Dispo: continue supportive care, possible DC later today with improvement
[2019-04-25 07:16] LABS: #Basophils 0.1 thou/uL (0.0-0.2); #Eosinphils 0.5 thou/uL (0.0-0.7); #Monocytes 0.8 thou/uL (0.11-0.59); #Neutrophils 5.7 thou/uL (1.40-6.50); %Basophils 0.7 % (0.0-1.0); %Eosinophils 5.6 % (0.0-10.0); %Neutrophils 62.7 % (31.0-61.0); Hemoglobin 13.5 g/dL (14.0-18.0); Mean Corpuscular Hemoglobin 29.5 pg (25.0-35.0); Mean Corpuscular Volume 86.8 fL (78.0-98.0); Platelet Count 225 thou/uL (130-400); RBC Distribution Width 11.4 % (11.5-14.5); Red Blood Cell (RBC) Count 4.56 mill/uL (4.00-5.20); White Blood Cell (WBC) Count 9.1 thou/uL (4.8-10.8)
[2019-04-25 07:24] LABS: Anion Gap 10 mmol/L (10-20); BUN (Urea Nitrogen) 11 mg/dL (8.9-20.6); Calc. Creatinine Clearance 172 mL/min (70-130); Calcium 8.5 mg/dL (7.8-10.44); Carbon Dioxide 26 mmol/L (22-29); Chloride 108 mmol/L (98-107); Estimated GFR-MDRD Greater than 90; Glucose 92 mg/dL (70-105); Potassium 3.6 mmol/L (3.5-5.1); Sodium 140 mmol/L (136-145)
[2019-04-25 07:27] VITALS: TEMP 98.3
[2019-04-25] MEDS: Enoxaparin Sodium 40 MG/0.4 ML SYRINGE SC SCH (08:01)
[2019-04-25] MEDS: Hydrocortisone 10 mg Tablet PO SCH (08:02)
[2019-04-25] MEDS: Fludrocortisone Acetate 0.1 MG TAB PO SCH (08:02)
[2019-04-25 11:07] VITALS: BP 101/70
--- NOTE | 2019-04-25 12:04 | PRG ---
DATE OF SERVICE: 04/25/2019 I have examined the patient and discussed the case with Dr. Jayden Cid. I agree with his assessment and plan. Job ID: [id number]
--- NOTE | 2019-04-27 12:48 | DIS ---
DATE OF ADMISSION: 04/23/2019 DATE OF DISCHARGE: 04/25/2019 DISCHARGE ATTENDING: Dr. Anival Sewell. CONSULTS: None. PROCEDURES: None. IMAGING STUDIES: Chest x-ray significant for no acute cardiopulmonary abnormalities. Brain CT, no evidence for intracranial hemorrhage or mass effect. Abdomen and pelvis CT, fluid density throughout the colon suggesting diarrheal illness. DISCHARGE MEDICATIONS: 1. Nexium 20 mg p.o. at bedtime. 2. hydrocortisone 5mg p.o. t.i.d. 3. Fludrocortisone 0.1 mg p.o. b.i.d. 4. hydrocortisone 15mg t.i.d. for 2 days. 5. Imodium 2 mg p.o. p.r.n. 6. Zofran 4 mg p.o. q.6 hours p.r.n. DISCHARGE DIAGNOSIS: Congenital adrenal hyperplasia with mild adrenal crisis. SECONDARY DIAGNOSES: 1. Infectious gastroenteritis. 2. Gastroesophageal reflux disease. HISTORY OF PRESENT ILLNESS/HOSPITAL COURSE: Mr. Mayes is a 18-year-old male with past medical history significant for congenital adrenal hyperplasia. He presented to the emergency department with episode of syncope and nausea and vomiting. This began the prior day and he was feeling lightheaded and nauseous with an episode of emesis and a syncopal episode, hitting his head on the toilet. In the emergency department, CT scans are negative. He was found to have cortisol level of 1. He was given Solu-Cortef 100 mg and 2 L of fluid. Admitted to the hospital for inability to tolerate p.o. and mild adrenal crisis. He was given IV steroids, and his nausea and vomiting were controlled with medicine as well. He improved throughout his hospitalization, was given fluids. Blood pressure remained at his low normal. The patient slowly improved given stress dose of steroids, able to tolerate p.o. Vital signs remained stable and he was discharged to home with a stress dose of steroids, and his normal steroids and fludrocortisone to be resumed upon discontinuation of his stress dose of steroids. DISCHARGE INSTRUCTIONS: 1. Location: Home. 2. Diet: Regular. 3. Activity: As tolerated. 4. Followup: Follow up with PCP in the next 3 to 7 days. Job ID: [id number] [facility]
== END 2019-04-25 11:13 | disposition home or self-care (01) ==
LOC: ERS 15:30 → T4-A 18:35
PROVIDERS: ADMIT Family Medicine; ATTEND Family Medicine
DX: E25.0 Congenital adrenogenital disorders associated with enzyme deficiency (principal); F17.290 Nicotine dependence, other tobacco product, uncomplicated; K21.9 Gastro-esophageal reflux disease without esophagitis; Z79.899 Other long term (current) drug therapy; W22.09XA Striking against other stationary object, initial encounter
CPT/HCPCS: 36415; 70450; 71045; 74177; 80048; 80053; 80306; 80307; 81003; 81015; 82533; 82550; 83605; 83630; 83690; 83735; 84443; 84484; 85025; 86850; 86900; 86901; 87040; 87324; 87449; 87804; 93005; 94760; 96361; 96374; 96375; G0378; J1720; J1885; J2405; Q0162; Q9967

== ENCOUNTER 2021-04-07 17:36 | Emergency (ER) | payer BC ==
[2021-04-07] MEDS ORDERED: Ondansetron ODT 4 MG TAB ONE ×2 (18:24→19:14)
[2021-04-07] MEDS ORDERED: Acetaminophen 500 MG TAB ONE (18:24)
== END 2021-04-07 20:48 | disposition home or self-care (01) ==
LOC: ERS 17:36
DX: B34.9 Viral infection, unspecified (principal); R11.2 Nausea with vomiting, unspecified; Z87.891 Personal history of nicotine dependence
CPT/HCPCS: 87804; 99284; Q0162